=== PATIENT | female | born 1950 | race Caucasian/White ===

== ENCOUNTER 2016-09-07 09:09 | Day surgery (SDC) | payer BC ==
[2016-09-05 08:34] LABS: BASOPHILS 0.5 %; BASOPHILS ABSOLUTE 0.04 10/3/uL (0.0-0.16); EOSINOPHILS 3.4 %; EOSINOPHILS ABSOLUTE 0.26 10/3/uL (0.0-0.53); HEMATOCRIT 38.8 % (36.0-48.0); HEMOGLOBIN 12.6 g/dL (12.0-16.0); IMMATURE GRANULOCYTES 0.1 %; IMMATURE GRANULOCYTES ABSOLUTE 0.01 10/3/uL (0.0-0.11); LYMPHOCYTES 35.6 %; LYMPHOCYTES ABSOLUTE 2.69 10/3/uL (0.67-4.30); MEAN CORPUS HGB CONC 32.5 g/dL (32.0-36.0); MEAN CORPUSCULAR HEMOGLOB 28.6 pg (26.0-34.0); MEAN PLATELET VOLUME 11.9 fL (9.2-13.0); MONOCYTES ABSOLUTE 0.91 10/3/uL (0.21-1.20); NEUTROPHILS 48.4 %; NEUTROPHILS ABSOLUTE 3.65 10/3/uL (2.02-8.40); PLATELET COUNT 301 10/3/uL (150-400); RBC DISTRIBUTION WIDTH 15.4 % (12.0-16.0); RED CELL COUNT 4.41 10/6/uL (4.0-5.6); WHITE BLOOD CELLS 7.6 10/3/uL (4.5-10.5)
[2016-09-05 08:35] LABS: MANUAL DIFF NO %
[2016-09-05 08:58] LABS: A/G RATIO 1.2 (0.7-1.9); ALBUMIN 3.6 G/DL (3.5-5.0); ALKALINE PHOSPHATASE 77 U/L (45-117); BUN (BLOOD UREA NITROGEN) 16 MG/DL (6-23); CALCIUM, SERUM 10.5 MG/DL (8.5-10.4); CHLORIDE, SERUM 102 MMOL/L (96-112); CO2 (CARBON DIOXIDE) 30 MMOL/L (24-34); GFR AFRICAN AMERICAN 61 ML/MIN (>=60); GFR NON AFRICAN AMERICAN 53 ML/MIN (>=60); GLOBULIN 2.9 G/DL (2.5-4.1); GLUCOSE, SERUM 92 MG/DL (60-99); POTASSIUM, SERUM 4.8 MMOL/L (3.5-5.3); SGOT(AST) 22 U/L (5-40); SGPT(ALT) 29 U/L (5-65); SODIUM, SERUM 134 MMOL/L (135-148); TOTAL BILIRUBIN 0.3 MG/DL (0-1.2); TOTAL PROTEIN 6.5 G/DL (6.0-8.5)
--- NOTE | ~2016-09-07 | PREOPHP ---
PreOp History and Physical [address] [place]. [address] NAME: MANJINDER SINGH : 54 STATUS : PRE [facility] [place] PAT#: [id number] AGE: 66 ADM/REG DATE : MR#: [id number] REPORT SERV DATE: 09/07/16 DICTATED BY: DICK HECK III DATE: 08/04/16 REPORT STATUS : Draft TRANSCRIBED BY: MODL DATE: 08/04/16 HISTORY OF PRESENT ILLNESS: This 66-year-old female comes to the operating room for laparoscopic cholecystectomy, possible laparotomy, for symptomatic cholelithiasis and cholecystitis associated with a porcelain gallbladder. The patient complains of a one-week history of upper abdominal cramping and pain. She has had several episodes of upper abdominal pain. She has gallstones and felt to have symptomatic cholelithiasis and cholecystitis. In addition, she has "porcelain gallbladder." PAST MEDICAL HISTORY: 1. History of colitis. 2. Hypertension. 3. Hyperlipidemia. MEDICATIONS: Diazepam, Zantac, levothyroxine, lisinopril, raloxifene, simvastatin. The patient also has a history of hypothyroidism. ALLERGIES: NONE. PAST SURGICAL HISTORY: Status post rotator cuff surgery. FAMILY HISTORY: Positive for heart disease. SOCIAL HISTORY: The patient has a history of previous tobacco abuse. She has a history of alcohol use. REVIEW OF SYSTEMS: The patient's 14-point review of systems otherwise unremarkable. PHYSICAL EXAMINATION: GENERAL: This is a female, in no acute distress. She is alert and oriented x3. VITAL SIGNS: Blood pressure 139/81, pulse 83, temperature 97. HEENT: Unremarkable. NEUROLOGIC: Cranial nerves 2 through 12 were normal. LUNGS: Clear. CARDIAC: Normal. ABDOMEN: Soft. Nontender. No masses. EXTREMITIES: Normal with no edema. LABORATORY DATA: Gallbladder ultrasound shows gallstones with a porcelain gallbladder. ASSESSMENT: A 66-year-old male with: 1. Symptomatic cholelithiasis, cholecystitis, associated with a porcelain gallbladder. 2. History of tobacco abuse. 3. Hypertension. 4. Hyperlipidemia. 5. Hypothyroidism. PreOp History and Physical [address] [address] NAME: MANJINDER SINGH : 54 STATUS : PRE [facility]#: [id number] AGE: 66 ADM/REG DATE : MR#: [id number] REPORT SERV DATE: 09/07/16 DICTATED BY: DICK HECK III DATE: 08/04/16 REPORT STATUS : Draft TRANSCRIBED BY: NELLIE DATE: 08/04/16 PLAN: The patient comes to the operating room now for laparoscopic cholecystectomy, possible laparotomy. This procedure, the risks, benefits, and alternatives, including but not limited to the risk for bleeding, infection, common bile duct injury, bile leak, retained common bile stone, enterotomy or injury to any abdominal structure, the definite possible need for laparotomy, possible persistence of her symptoms unrelieved by surgery, possibility of postoperative diarrhea or incisional hernia, and unforeseen complications including deep venous thrombosis, pulmonary embolus, myocardial infarction, stroke, pneumonia, and , have been fully and completely explained to the patient at length prior to surgery. The fact that this is a major operation with risk for major morbidity and mortality and no guarantee for relief of her symptom has been explained to her. The expected length of recovery with open laparoscopic procedures has been explained. The fact that there is definite increased risks and association of gallbladder cancer with porcelain gallbladder has been explained. The patient's questions have been answered. She clearly understands the risks and agrees to the surgery as planned. RHNitin/NELLIE Dick Heck III, M.D. / [id number] CC: Omar Parsons M.D.
--- NOTE | ~2016-09-07 | OP ---
Record Of Operation [facility] [address] [place]. [address] NAME: MANJINDER SINGH : 54 STATUS : REG [facility] [place] PAT#: [id number] AGE: 66 ADM/REG DATE : 09/07/16 MR#: [id number] REPORT SERV DATE: 09/07/16 DICTATED BY: DICK HECK III DATE: 09/07/16 REPORT STATUS : Draft TRANSCRIBED BY: MODL DATE: 09/07/16 DATE OF PROCEDURE: 09/07/2016 PREOPERATIVE DIAGNOSIS: Symptomatic cholelithiasis and cholecystitis. POSTOPERATIVE DIAGNOSIS: Symptomatic cholelithiasis and cholecystitis. PROCEDURE: Laparoscopic cholecystectomy. SURGEON: Dick Heck M.D. ANESTHESIA: General with intubation. COMPLICATIONS: None. ESTIMATED BLOOD LOSS: Less than 30 mL. SPECIMENS: Gallbladder. DRAINS: None. LAP AND SPONGE COUNT: Correct x3. BRIEF HISTORY: This 66-year-old female presented with evidence for symptomatic cholelithiasis, cholecystitis, and a porcelain gallbladder. It was felt that laparoscopic cholecystectomy, possible laparotomy, was indicated. This procedure, the risks, benefits, and alternatives, including but not limited to the risk for bleeding, infection, common bile duct injury, bile leak, retained common bile stone, enterotomy, or injury to any abdominal structure, the definite possible need for laparotomy, the possible persistence of her symptoms unrelieved by surgery, possibility of postoperative diarrhea or incisional hernia, and unforeseen complications including deep venous thrombosis, pulmonary embolus, myocardial infarction, stroke, pneumonia, and were fully and completely explained to the patient prior to the surgery. The fact that this was a major operation with risk for major morbidity and mortality, and no guarantee for relief of her symptoms were explained to her. The expected length of recovery with both open laparoscopic procedure was explained. The fact that there might be increased risk for possible laparotomy and complications due to the severity of her disease with a "porcelain" gallbladder was explained. The patient's questions were answered. She understood the risks, and agreed to the surgery as planned procedure. The patient had a very hard and chronically inflamed gallbladder with adhesions between the gallbladder and omentum consistent with cholecystitis. The pal of the gallbladder were very thickened and there were large stones within the gallbladder all consistent with severe chronic cholecystitis. No definite evidence for malignancy was seen. There was moderate bleeding from one area of the liver bed, and hemostasis was aided with a Surgicel placed in this area. DESCRIPTION OF PROCEDURE: After being appropriately identified and after discussing the Record Of Operation [place] [address] [facility] [address] NAME: MANJINDER SINGH : 54 STATUS : REG [facility] [place] PAT#: [id number] AGE: 66 ADM/REG DATE : 09/07/16 MR#: [id number] REPORT SERV DATE: 09/07/16 DICTATED BY: DICK HECK III DATE: 09/07/16 REPORT STATUS : Draft TRANSCRIBED BY: MODMartha DATE: 09/07/16 risks of surgery with the patient and her family in the preoperative area, the patient was taken to the operating room and placed in the supine position on the operating room table. General anesthesia was administered. She was intubated without difficulty. The abdomen was prepped and draped sterilely in the usual fashion. After an appropriate "time-out" per JCAHO standards, a small transverse incision was made below the umbilicus. The skin and fascia on either side was elevated with towel clips. A Veress needle was placed through the incision into the peritoneal cavity. Correct position of the needle in the peritoneal cavity was confirmed by the hanging drop test. The abdominal cavity was then insufflated to about 13 mmHg with carbon dioxide. Correct position of air in the peritoneal cavity was confirmed by palpation. The Veress needle was removed and replaced with 10 mm trocar. The laparoscope was placed through this. The patient was placed in the reverse Trendelenburg position and to her left. A second 10 mm trocar was placed just below the xiphoid process, to the right of the falciform ligament, under direct vision with the laparoscope. Two 5 mm trocars were placed along the right subcostal margin, one in the midaxillary line, the other in the midclavicular line. These were also placed under direct vision with the laparoscope. The upper abdomen was inspected. The gallbladder appeared to be chronically diseased. The gallbladder pal were thickened and inflamed consistent chronic cholecystitis. The liver and remainder of the upper abdomen were otherwise unremarkable as far as we could determine through the laparoscope. The appropriate instruments were placed through the trocars. The gallbladder was grasped and the infundibulum of the gallbladder was retracted laterally and inferiorly so as to expose the triangle of Calot. Using careful sharp and blunt dissection, the cystic duct was carefully and meticulously defined proximally and distally. The cystic duct was fairly long. The junction of the cystic duct with the common bile duct was appreciated, but not skeletonized. The cystic artery was similarly defined proximally and distally. The fibrous and fatty tissue between these structures was divided so as to clearly identify the critical angle. Once these structures were clearly defined, the cystic duct was clipped using two clips on the common bile duct side and one on the gallbladder side, all placed as close to the gallbladder as possible, taking care not encroach upon or injure the common bile duct in any way. The cystic duct was then divided between these clips as close to the gallbladder as possible. We elected not to perform a cholangiogram because there was no preoperative or intraoperative evidence for biliary dilatation and because the patient's preoperative liver enzymes were normal and because her biliary anatomy was clearly defined. Again, the structure was not divided or clipped until the critical angle and triangle of Calot had been clearly identified. The cystic artery was then similarly clipped and divided as close to the gallbladder as possible. Using the spatula and the cautery, the gallbladder was carefully dissected from the liver bed. This went very well. Before the gallbladder was completely removed, the gallbladder bed and portal areas were irrigated numerous times with saline. The saline was aspirated dry. This process was repeated several times until hemostasis was meticulously and thoroughly assured in all areas. It was also assured that the clips in the portal areas were in good position and there was no extravasation of bile from any accessory bile duct. Once this was assured, the gallbladder was completely dissected away from the liver and placed in the Endopouch. The liver bed was elevated, irrigated, and inspected for meticulous and thorough hemostasis and for absence of any biliary extravasation and to be certain that the clips were in good position. Once this was assured, the gallbladder and Endopouch were brought out through the infraumbilical incision and placed in the laparoscope through the subxiphoid port. The fascia of the infraumbilical incision was closed with 0 Vicryl suture. [facility] Record Of Operation [address] [place]. [address] NAME: MANJINDER SINGH DOB: [birth year] STATUS : REG [facility] [place] PAT#: [id number] AGE: 66 ADM/REG DATE : 09/07/16 MR#: [id number] REPORT SERV DATE: 09/07/16 DICTATED BY: DICK HECK III DATE: 09/07/16 REPORT STATUS : Draft TRANSCRIBED BY: NELLIE DATE: 09/07/16 trocars were removed. These two lower trocar sites were inspected on the underside for hemostasis with the laparoscope. Once this was assured, the subxiphoid trocar was removed under direct vision with the laparoscope to assure hemostasis in this incision. The air was removed from the peritoneal cavity through this incision. The skin incisions were inspected for hemostasis, they were closed with running subcuticular 4-0 Monocryl stitches. They were injected with one-half percent Marcaine. Dressings were applied. Anesthesia was reversed and the patient was taken to the recovery room in stable condition. The patient tolerated the procedure well. Her family was informed of the results of surgery. The patient will be discharged later when she is stable, comfortable and tolerating liquids and able to void and ambulate. Her family was advised that she should remain on a liquid diet today and advance this as tolerated to a regular diet tomorrow. She should keep wounds clean and dry for 48 hours and that she should not drive for 3 to 4 days after surgery or while using narcotics or Phenergan. They were advised that she should resume her usual medications. She was given a prescription for a narcotic and Phenergan, which she was advised to not take while driving. She was asked to return to the office in two weeks for followup or sooner for nausea, vomiting, fever, chills, wound drainage, abdominal pain, weakness, or other problems prior to that time. LLUVIA/NELLIE Dick Heck III, M.D. / [id number] CC: Cherri Hunter III, M.D.
[~2016-09-07 09:09] MED LIST: BENTYL20 PO; CALTRA600D PO; EVISTA60 PO; FISH-EPA1000 MG PO; HALF81 PO; LEVOTHYROXIN75 MCG PO; MULTIVITAMI1 PO; NABUMETONE750 MG PO; NASONEX NAS; PLAVIX PO; PRAVAC PO; PRINZIDE1 TAB PO; PROAIR HFA INH; PROTONIX PO; SAW PALMETT2 PO; SPIRIVA INH; TOPXL25 PO; V5 PO; VITC500 PO; ZANTAC150 MG PO; ZOCOR10 PO
[2016-09-07 15:43] LABS: HEMATOCRIT 39.6 % (36.0-48.0); HEMOGLOBIN 13.3 g/dL (12.0-16.0)
== END 2016-09-07 15:59 | disposition home or self-care (01) ==
LOC: SDC 09:09
PROVIDERS: Surgery
PROC: 0FT44ZZ Resection of Gallbladder, Percutaneous Endoscopic Approach (ICD-10-PCS; principal; 2016-09-07 10:00)
DX: K80.10 Calculus of gallbladder with chronic cholecystitis without obstruction (principal); I10 Essential (primary) hypertension; E03.9 Hypothyroidism, unspecified; E78.00 Pure hypercholesterolemia, unspecified; M19.90 Unspecified osteoarthritis, unspecified site; M85.80 Other specified disorders of bone density and structure, unspecified site; K44.9 Diaphragmatic hernia without obstruction or gangrene; Z87.891 Personal history of nicotine dependence; Z79.899 Other long term (current) drug therapy; Z98.890 Other specified postprocedural states
CPT/HCPCS: 71020; 80053; 85014; 85018; 85025; 88304; 88311; 93005; A9270-GY; J0690; J1170; J2250; J2405; J2710; J3010